=== PATIENT | female | born 1955 | race African-American/Black ===

== ENCOUNTER 2017-12-17 20:36 | Emergency (ER) | payer BC, OTHER ==
[~2017-12-17] VITALS: Ht 175.3 cm; Wt 128.0 kg
[2017-12-18] MEDS ORDERED: KETOROLAC 15MG/ML VIAL IM ONE (01:30)
[2017-12-18] MEDS ORDERED: ACETAMINOPHEN 650MG/20.3ML UDC PO ONE (01:30)
[2017-12-18] MEDS ORDERED: DIAZEPAM 2 MG TABLET PO ONE (01:30)
[2017-12-18 02:45] VITALS: BP 114/88
== END 2017-12-18 04:17 | disposition home or self-care (01) ==
LOC: ER 21:06
DX: M54.30 Sciatica, unspecified side (principal); M54.5 Low back pain; M25.561 Pain in right knee; M17.11 Unilateral primary osteoarthritis, right knee; M48.061 Spinal stenosis, lumbar region without neurogenic claudication
CPT/HCPCS: 72131; 73562; 96372; 99284; J1885; L1830; Z7610